=== PATIENT | female | born 1930 | race Caucasian/White ===

== ENCOUNTER → 2016-06-25 | Outpatient (CLI) | payer MEDICARE, OTHER | END | disposition home or self-care (01) | LOC: PCVCCLINIC 13:30 | PROVIDERS: ATTEND Internal Medicine Cardiovascular Disease | DX: E78.00 Pure hypercholesterolemia, unspecified (principal); I10 Essential (primary) hypertension; I35.0 Nonrheumatic aortic (valve) stenosis; I34.1 Nonrheumatic mitral (valve) prolapse | CPT/HCPCS: 80061; 93005; G0463 ==

== ENCOUNTER → 2017-01-27 | Outpatient (CLI) | payer MEDICARE, OTHER ==
--- NOTE | 2017-01-27 18:12 | PCVCIMAG ---
APPROVED REPORT Study performed: 01/27/2017 12:59:23 EXAM: Comprehensive 2D, Doppler, and color-flow Echocardiogram Patient Location: Echo lab Status: routine BSA: 1.78 HR: 67 bpmBP: 118/78 mmHg Rhythm: NSR Other Information Study Quality: Good Indications Aortic stenosis. Hypertension, Mitral Valve Prolapse. 2D Dimensions LVEF(%): 51.29 (>50%) IVSd: 10.00 (7-11mm)LVOT Diam: 20.26 (18-24mm) LVDd: 43.55 mm PWd: 11.19 (7-11mm)Ascending Ao: 35.36 (22-36mm) LVDs: 32.23 (25-40mm) Left Atrium: 33.55 (27-40mm) Aortic Root: 24.27 mm Steve's LVEF: 51.29 % Volumes Left Atrial Volume (Systole) Single Plane 4CH: 46.37 mLSingle Plane 2CH: 30.99 mL LA ESV Index: 67.00 mL/m2 Aortic Valve AoV Peak Daryl.: 3.29 m/s AO Peak Gr.: 43.41 mmHgLVOT Max P.27 mmHg AO Mean Gr.: 21.18 mmHgLVOT Mean P.11 mmHg AO V2 Mean: 2.20 m/sLVOT Max V: 1.03 m/s AO V2 VTI: 69.07 cmLVOT Mean V: 0.68 m/s VIJI (VTI): 1.32 [id number] V1 VTI: 28.40 cm VIJI Vmax: 1.01 cm2 SV (LVOT): 91.51 mL Mitral Valve E/A Ratio: 0.8 MV Decel. Time: 272.72 ms MV E Max Daryl.: 0.80 m/s MV A Daryl.: 1.05 m/s IVRT: 110.73 ms TDI E/Lateral E': 10.00E/Medial E': 11.43 Medial E' Daryl.: 0.07 m/s Lateral E' Daryl.: 0.08 m/s Pulmonary Valve PV Peak Gr.: 2.55 mmHg Tricuspid Valve TR Peak Daryl.: 2.61 m/s TR Peak Gr.: 27.22 mmHg Left Ventricle The left ventricle is normal size. There is normal LV segmental wall motion. There is normal left ventricular wall thickness. Left ventricular systolic function is normal. The left ventricular ejection fraction is within the normal range. LVEF is 60-65%. The left ventricular diastolic function is normal. Right Ventricle The right ventricle is normal size. The right ventricular systolic function is normal. Atria The left atrium size is normal. The right atrium size is normal. Aortic Valve Aortic valve is calcified. No aortic regurgitation is present. Moderate to severe aortic stenosis. VIJI is 1.0cm2. Peak gradient 44mmhg. Mean gradient 22mmhg. Mitral Valve The mitral valve is normal in structure. Mild mitral regurgitation. Mitral Leaflets appear thickened.mil Tricuspid Valve The tricuspid valve is normal in structure. Trace tricuspid regurgitation. Pulmonary artery pressure is 34mmhg. Pulmonic Valve The pulmonary valve is normal in structure. Mild pulmonic regurgitation. Great Vessels The aortic root is normal in size. IVC is normal in size and collapses with >50% inspiration Pericardium There is no pericardial effusion. <Conclusion> The left ventricle is normal size. There is normal left ventricular wall thickness. Left ventricular systolic function is normal. The left ventricular ejection fraction is within the normal range. The left ventricular diastolic function is normal. The right ventricle is normal size. The left atrium size is normal. Aortic valve is calcified. Moderate to severe aortic stenosis. VIJI is 1.0cm2. Peak gradient 44mmhg. Mean gradient 22mmhg. The mitral valve is normal in structure. Trace tricuspid regurgitation. Pulmonary artery pressure is 34mmhg. Mitral Leaflets appear thickened. trivial prolapse. no effusion
== END | disposition home or self-care (01) ==
LOC: PCVCIMAG 13:16
PROVIDERS: ATTEND Internal Medicine Cardiovascular Disease
DX: I08.3 Combined rheumatic disorders of mitral, aortic and tricuspid valves (principal); E78.00 Pure hypercholesterolemia, unspecified; I10 Essential (primary) hypertension; M19.90 Unspecified osteoarthritis, unspecified site; Z90.49 Acquired absence of other specified parts of digestive tract; Z96.652 Presence of left artificial knee joint; Z87.891 Personal history of nicotine dependence
CPT/HCPCS: 80061; 93005; 93306; G0463

== ENCOUNTER → 2017-08-27 | Outpatient (CLI) | payer MEDICARE, OTHER | END | disposition home or self-care (01) | LOC: PCVCCLINIC 13:20 | DX: I10 Essential (primary) hypertension (principal); E78.00 Pure hypercholesterolemia, unspecified; R01.1 Cardiac murmur, unspecified; R94.31 Abnormal electrocardiogram [ECG] [EKG]; I08.0 Rheumatic disorders of both mitral and aortic valves; Z87.891 Personal history of nicotine dependence; Z79.899 Other long term (current) drug therapy | CPT/HCPCS: 80061; 93005; G0463 ==

== ENCOUNTER → 2018-03-16 | Outpatient (CLI) | payer MEDICARE, OTHER ==
--- NOTE | 2018-03-16 15:11 | PCVCIMAG ---
APPROVED REPORT Study performed: 03/16/2018 13:11:39 EXAM: Comprehensive 2D, Doppler, and color-flow Echocardiogram Patient Location: Echo lab Status: routine BSA: 1.79 HR: 74 bpmBP: 110/70 mmHg Rhythm: NSR Risk Factors: Cardiac Risk Factors: HTN, Hyperlipidemia Indications Mitral Valve Disease Murmur Aortic Stenosis. 2D Dimensions RVDd: 28.16 mm IVSd: 10.80 (7-11mm)LVOT Diam: 18.86 (18-24mm) LVDd: 40.09 mm PWd: 10.68 (7-11mm)Ascending Ao: 33.84 (22-36mm) LVDs: 36.74 (25-40mm) Left Atrium: 32.54 (27-40mm) Aortic Root: 27.75 mm LV Single Plane 4CH: 60.07 % LV Single Plane 2CH: 57.90 % Biplane EF: 58.7 % Volumes Left Atrial Volume (Systole) Single Plane 4CH: 45.68 mLSingle Plane 2CH: 43.51 mL LA ESV Index: 27.00 mL/m2 Aortic Valve AoV Peak Daryl.: 3.01 m/s AO Peak Gr.: 36.20 mmHgLVOT Max P.90 mmHg AO Mean Gr.: 25.84 mmHgLVOT Mean P.79 mmHg AO V2 Mean: 2.48 m/sLVOT Max V: 1.11 m/s AO V2 VTI: 71.15 cm VIJI (VTI): 0.94 [id number] V1 VTI: 23.83 cm VIJI Vmax: 1.03 cm2 Mitral Valve E/A Ratio: 0.7 MV Decel. Time: 297.96 ms MV E Max Daryl.: 0.69 m/s MV A Daryl.: 1.06 m/s MV PHT: 86.41 ms IVRT: 107.27 ms Pulmonary Valve PV Peak Gr.: 3.84 mmHg Pulmonary Vein P Vein S: 0.79 m/sP Vein A: 0.45 m/s P Vein D: 0.40 m/sP Vein A Dur.: 86.5 msec P Vein S/D Ratio: 1.98 Tricuspid Valve TR Peak Daryl.: 2.84 m/s TR Peak Gr.: 32.34 mmHg Left Ventricle The left ventricle is normal size. There is normal LV segmental wall motion. There is normal left ventricular wall thickness. Left ventricular systolic function is normal. The left ventricular ejection fraction is within the normal range. 55-60% The left ventricular diastolic function is normal. Right Ventricle The right ventricle is normal size. The right ventricular systolic function is normal. Atria The left atrium size is normal. The right atrium size is normal. Aortic Valve Aortic valve leaflets are moderately thickened. Trace aortic regurgitation. Moderate to severe aortic stenosis. Aortic peak gradient is 37mmHg. Mean gradient of 26mmHg. Aortic valve area is 1.0cm2. Mitral Valve The mitral valve is normal in structure. Mild mitral regurgitation. No evidence of mitral valve stenosis. Tricuspid Valve The tricuspid valve is normal in structure. Trace tricuspid regurgitation. Pulmonic Valve The pulmonary valve is normal in structure. There is no pulmonic valvular regurgitation. Great Vessels The aortic root is normal in size. IVC is normal in size and collapses >50% with inspiration. Pericardium There is no pericardial effusion. <Conclusion> The left ventricle is normal size. Left ventricular systolic function is normal. The left ventricular ejection fraction is within the normal range. 55-60% The right ventricle is normal size. The left atrium size is normal. Aortic valve leaflets are moderately thickened. Trace aortic regurgitation. Moderate to severe aortic stenosis. Aortic peak gradient is 37mmHg. Mean gradient of 26mmHg. Aortic valve area is 1.0cm2. Mild mitral regurgitation. Trace tricuspid regurgitation. The aortic root is normal in size. There is no pericardial effusion.
== END | disposition home or self-care (01) ==
LOC: PCVCIMAG 12:58
PROVIDERS: ATTEND Internal Medicine Cardiovascular Disease
DX: I08.0 Rheumatic disorders of both mitral and aortic valves (principal); E78.00 Pure hypercholesterolemia, unspecified; I10 Essential (primary) hypertension; R01.1 Cardiac murmur, unspecified; R94.31 Abnormal electrocardiogram [ECG] [EKG]; Z87.891 Personal history of nicotine dependence; Z79.899 Other long term (current) drug therapy
CPT/HCPCS: 80061; 93005; 93306; G0463

== ENCOUNTER → 2018-10-25 | Outpatient (CLI) | payer MEDICARE, OTHER | END | disposition home or self-care (01) | LOC: PCVCCLINIC 14:50 | PROVIDERS: ATTEND Internal Medicine Cardiovascular Disease | DX: I35.0 Nonrheumatic aortic (valve) stenosis (principal); I34.1 Nonrheumatic mitral (valve) prolapse; I10 Essential (primary) hypertension; E78.00 Pure hypercholesterolemia, unspecified; R01.1 Cardiac murmur, unspecified; Z87.891 Personal history of nicotine dependence | CPT/HCPCS: 36415; 80061; 93005; G0463 ==